=== PATIENT | male | born 1940 | race Caucasian/White ===

== ENCOUNTER → 2019-08-16 10:18 | Outpatient (BNVA) | payer MEDICARE, SELFPAY | PROVIDERS: Family Provider Urology; PCP Family Medicine; Visit Provider Family Medicine | DX: J30.9 Allergic rhinitis, unspecified (principal); E03.9 Hypothyroidism, unspecified; E78.00 Pure hypercholesterolemia, unspecified; R63.4 Abnormal weight loss; Z01.818 Encounter for other preprocedural examination; J30.1 Allergic rhinitis due to pollen; K21.9 Gastro-esophageal reflux disease without esophagitis; N40.0 Benign prostatic hyperplasia without lower urinary tract symptoms | CPT/HCPCS: 80053; 80061; 84439; 84443; 84481; 85025 ==

== ENCOUNTER 2019-09-23 06:00 | Outpatient (RCR) | payer MEDICARE, SELFPAY | END 2019-10-05 23:59 | disposition home or self-care (01) | LOC: MPT 06:00 | PROVIDERS: PCP Family Medicine; Visit Provider Orthopaedic Surgery | DX: Z47.1 Aftercare following joint replacement surgery (principal); Z96.652 Presence of left artificial knee joint | CPT/HCPCS: 97110; 97140; 97161; 97530; G0283 ==

== ENCOUNTER 2019-10-06 06:00 | Outpatient (RCR) | payer MEDICARE, SELFPAY | END 2019-11-05 23:59 | disposition home or self-care (01) | LOC: MPT 06:00 | PROVIDERS: PCP Family Medicine; Visit Provider Orthopaedic Surgery | DX: Z47.1 Aftercare following joint replacement surgery (principal); Z96.652 Presence of left artificial knee joint | CPT/HCPCS: 97110; 97116; 97140; G0283 ==

== ENCOUNTER 2019-11-06 06:00 | Outpatient (RCR) | payer MEDICARE, SELFPAY | END 2019-12-06 23:59 | disposition home or self-care (01) | LOC: MPT 06:00 | PROVIDERS: PCP Family Medicine; Visit Provider Orthopaedic Surgery | DX: Z47.1 Aftercare following joint replacement surgery (principal); Z96.652 Presence of left artificial knee joint | CPT/HCPCS: 97110; 97140 ==

== ENCOUNTER → 2020-01-10 14:32 | Outpatient (BNVA) | payer MEDICARE, SELFPAY | PROVIDERS: PCP Family Medicine; Visit Provider Nurse Practitioner Family | DX: Z20.828 Contact with and (suspected) exposure to other viral communicable diseases (principal); R68.89 Other general symptoms and signs | CPT/HCPCS: 87400; 87635 ==

== ENCOUNTER → 2020-03-23 09:12 | Outpatient (BNVA) | payer MEDICARE, SELFPAY | PROVIDERS: PCP Family Medicine; Visit Provider Urology | DX: R97.20 Elevated prostate specific antigen [PSA] (principal); N40.0 Benign prostatic hyperplasia without lower urinary tract symptoms | CPT/HCPCS: 81003; 84153 ==

== ENCOUNTER → 2021-04-10 13:12 | Outpatient (BNVA) | payer MEDICARE, SELFPAY | PROVIDERS: PCP Family Medicine; Visit Provider Urology | DX: R97.20 Elevated prostate specific antigen [PSA] (principal); N40.0 Benign prostatic hyperplasia without lower urinary tract symptoms | CPT/HCPCS: 81003; 84153 ==

== ENCOUNTER → 2021-04-18 09:00 | Outpatient (BNVA) | payer MEDICARE, SELFPAY | PROVIDERS: PCP Family Medicine; Visit Provider Nurse Practitioner Family | DX: Z20.822 Contact with and (suspected) exposure to COVID-19 (principal); N40.1 Benign prostatic hyperplasia with lower urinary tract symptoms | CPT/HCPCS: 87635 ==

== ENCOUNTER 2021-04-25 15:44 | Observation (INO) | payer MEDICARE, SELFPAY ==
[2021-04-24 10:07] VITALS: BMI 18.6
[2021-04-25] VITALS (20 sets, daily range): BP systolic 111–146; BP diastolic 44–96; PULSE 70–102; RESP 10–22; TEMP 36.2–37; O2SAT 94–917; BMI 18.6
--- NOTE | 2021-04-25 06:12 | W.PM.OPSUD ---
Surgery/Procedure H&P Update DATE OF PROCEDURE: April 25, 2021 DATE H&P PERFORMED: 04/10/21 H&P UPDATE INFORMATION: I have reviewed H&P completed within last 30 days, I have examined patient prior to procedure, No changes to prior documentation and H&P is in [facility] EMR on date indicated PLANNED PROCEDURE: Operation Date: 04/25/21 09:05 Proposed Procedures p Transurethral Resection Of Prostate 30824 N40.0(Not Applicable) - Jack Roberts MD s Cystoscopy(Not Applicable) - Jack Roberts MD
--- NOTE | 2021-04-25 07:44 | ECG_ITS ---
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 Measurements Intervals [place] Rate: 78 P: 81 UT: 183 QRS: -12 QRSD: 101 T: 71 QT: 394 QTc: 449 Interpretive Statements SINUS RHYTHM WITH OCCASIONAL VENTRICULAR PREMATURE COMPLEXES No previous ECG available for comparison Electronically Signed On 04-26-2021 19:25:16 [employer] by Danielle Irizarry M.D. [email or web address]
[2021-04-25] MEDS: sodium chloride 0.9% 1,000 ML 30 ML IV (08:33)
[2021-04-25 08:43] LABS: Basophils % 0.4 %; Eosinophils # 0.2 10^3/uL (0.0-0.8); Eosinophils % 3.1 %; Hematocrit 46.9 % (42.0-52.0); Hemoglobin 15.7 g/dL (11.7-16.6); Lymphocytes # 1.5 10^3/uL (0.8-4.8); Lymphocytes % 28.5 %; Mean Corpuscular HGB Conc 33.5 g/dL (30.0-36.0); Mean Corpuscular Hemoglobin 30.9 pg (28.0-34.0); Mean Corpuscular Volume 92.3 fl (80-94); Mean Platelet Volume 10.1 fL (7.4-10.4); Monocytes # 0.6 10^3/uL (0.2-0.9); Monocytes % 10.8 %; Neutrophils # 2.97 10^3/uL (1.8-7.7); Nucleated Red Blood Cells % 0 %; Platelet Count 158 10^3/cmm (130-400); Red Blood Count 5.08 10^6/uL (4.1-5.3); Red Cell Distribution Width 11.9 % (12.1-15.1); White Blood Count 5.2 10^3/uL (4.0-10.0)
--- NOTE | 2021-04-25 09:06 | P.ANESASSM_ITS ---
Pre-Anesthetic Assessment Pre-Anesthetic Assessment: Height/Weight: Height 1.88 m Weight 65.771 kg Temp Pulse Resp BP Pulse Ox 97.4 F L 88 17 129/66 96 04/25/21 07:49 04/25/21 07:49 04/25/21 07:49 04/25/21 07:49 04/25/21 07:49 Preop Diagnosis: Refractory BPH/obstruction Proposed Procedure: Operation Date: 04/25/21 10:05 Proposed Procedures p Transurethral Resection Of Prostate 42474 N40.0(Not Applicable) - Jack Roberts MD s Cystoscopy(Not Applicable) - Jack Roberts MD Was Beta Yamileth taken within 24 hours: N/A Was Clonidine taken within 24 hours: N/A Last intake: Intake Last Liquid Date 04/24/21 Last Liquid Time 22:00 Last Solid Date 04/24/21 Last Solid Time 22:00 Social: Social History: No alcohol and No tobacco Exam: Pre-Anes Outpt Exam: alert, oriented x 3, clear to auscultation bilaterally and regular rate & rhythm Airway: Submandibular: WNL Cervical ROM: WNL MP: 2 Dentition: Full GI: GI: GERD Anesthetic Plan: ASA status: 2 Anesthesia: General Risk of > 500 ml blood loss (7ml/kg in children): No Medications/Allergies 2 Current Medications: Current Medications Generic Name Dose Route Start Last Admin Trade Name Freq PRN Reason Stop Dose Admin Sodium Chloride 1,000 mls @ 30 ml s/hr 04/25/21 07:45 04/25/21 08:33 Sodium Chloride 0.9% IV 04/26/21 07:44 30 mls/hr .Q24H АНДРЕЙ Administration PFSH Anesthesia PFSH: Medical History Allergic rhinitis Benign non-nodular prostatic hyperplasia BPH loc w urin obs/LUTS Elevated PSA GERD (gastroesophageal reflux disease) Hypercholesteremia Hypothyroidism Surgical History H/O shoulder surgery History of knee replacement Family History Brother Cancer Dementia Mother , in her 80's No problems noted. Father , at age 82 Stroke Social History Smoking and tobacco status: never smoked Second hand smoke exposure: No Alcohol intake: never Desire information about alcohol rehabilitation?: No Desire information about substance/drug rehabilitation?: No Marital status: Current occupational status: retired History of recent travel: No Current gender identity: Male Data Anesthesia CBC & Chem 7: 04/25/21 08:28 04/25/21 08:28 Other Labs: Laboratory Results - last 48 hr 04/25/21 08:28 WBC 5.2 RBC 5.08 Hgb 15.7 Hct 46.9 MCV 92.3 MCH 30.9 MCHC 33.5 RDW 11.9 L Plt Count 158 MPV 10.1 Neut % (Auto) 57.0 Lymph % (Auto) 28.5 [place] % (Auto) 10.8 Eos % (Auto) 3.1 Baso % (Auto) 0.4 Neut # (Auto) 2.97 Lymph # (Auto) 1.5 [facility] [facility] # (Auto) 0.6 Eos # (Auto) 0.2 Baso # (Auto) 0.0 Nucleated RBC % (auto) 0 Nucleated RBCs # 0.0 Cardiac Studies: No Data to Display
[2021-04-25 09:11] LABS: Alanine Aminotransferase 12 U/L (0-41); Albumin Level 4.2 g/dL (3.5-5.2); Alkaline Phosphatase 73 IU/L (40-130); Aspartate Amino Transferase 16 U/L (0-40); Blood Urea Nitrogen 17 mg/dL (8-23); Carbon Dioxide 24 mmol/L (22-29); Chloride 107 mmol/L (98-107); Creatinine Clr Calc Pharmacy 61.9141; Globulin 2.3 g/dL (1.3-4.6); Glucose 88 mg/dL (65-115); Osmolality Calculated 293 mOsm/kg (285-295); Sodium 141 mmol/L (136-145); Total Bilirubin 0.5 mg/dL (0.15-1.2); Total Protein 6.5 g/dL (6.6-8.7)
[2021-04-25 09:22] LABS: Anion Gap 14.2 (5-19); Potassium 4.2 mmol/L (3.5-5.1)
--- NOTE | 2021-04-25 11:36 | P.HPUD_ITS ---
Surgery/Procedure H&P Update DATE OF PROCEDURE: April 25, 2021 DATE H&P PERFORMED: 04/25/20 H&P UPDATE INFORMATION: I have reviewed H&P completed within last 30 days, I have examined patient prior to procedure, No changes to prior documentation and H&P is in [facility] [place] EMR on date indicated CHANGES TO PREVIOUS DOCUMENTATION: Procedure reviewed again with perioperative expectations and limitations reviewed PREOP DIAGNOSIS: Refractory BPH/obstruction PLANNED PROCEDURE: Operation Date: 04/25/21 09:05 Proposed Procedures p Transurethral Resection Of Prostate 97973 N40.0(Not Applicable) - Jack Roberts MD s Cystoscopy(Not Applicable) - Jack Roberts MD
--- NOTE | 2021-04-25 11:45 | P.OP_ITS ---
Operative Report Date of procedure: April 25, 2021 Pre-op Diagnosis: Refractory BPH/obstruction Post-op diagnosis: same Post-op Diagnosis: Refractory BPH/obstruction Procedure Done: 1. Cystoscopy, transurethral resection/vaporization of the prostate Specimens removed/disposition: Prostate chips Pathology: Sampling of prostate tissue Surgeon: Alejandra Anesthesia: General Estimated blood loss: <100 cc Urine output: Not measured Complications: None Findings: Trilobar enlargement of the prostate. Wide open at the completion of the procedure with good hemostasis. All prostate chips evacuated from the bladder confirmed Condition: stable Disposition: PACU Brief History: Mr. Young is a delightful 80-year-old white male with longstanding BPH/obstruction and managed with medical therapy for years. More recently his symptoms have been increasing and he decided to switch from medical therapy to surgical intervention. We have talked about surgery options for many years. He had been scheduled a couple times but due to illness and other variables he had to postpone. . Procedure: After routine preoperative evaluation examination and obtaining of informed consent he was taken to the operating suite on 04/25/2020 where general anesthesia was administered without difficulty after appropriate timeout was performed, SCDs confirmed to be functioning, preoperative antibiotics administered, beta-lottie protocol confirmed. Prepped and draped in usual sterile fashion in dorsolithotomy position paying careful attention to avoiding pressure points. 21 [place] cystoscope with 30 degree lens was introduced into the urethra meatus and advanced into the bladder to videoscopy. The bladder was systematically examined with both 30 and 70 degree lenses. No other gross pathology was identified other than trilobar enlargement of the prostate. The bladder was moderately trabeculated. Urethra was then calibrated with [place] sounds and easily accommodated 30 [place]. 2% lidocaine jelly was instilled into the urethra then a 25 [place] continuous- flow resectoscope sheath with visual obturator in place was advanced into the bladder without difficulty. The gyrus bipolar system was utilized with supersect for resection and button probe for vaporization as well as final sculpting of the prostatic fossa with hemostasis obtained. The prostatic mucosa was very friable and for that reason the initial treatment was instituted with the button probe for hemostatic vaporization. This was initiated at the bladder neck with intravesically protruding prostatic tissue with resection circumferentially down to the circular fibers of the bladder neck. There was very minimal median lobe tissue. The left lateral lobe from the bladder neck at the roughly 12 o'clock position down to the floor of the prostate was vaporized out to but not distal to the verumontanum. The right lateral lobe was then vaporized in the same longitudinal extent and depth. The floor the tissue was harvested in the same fashion. A 6:00 incision was made with the button probe vaporization as well as at 3:00 and 9:00 to further spring the bladder neck open. The supersect loop was utilized to resect some of the deeper lateral lobe tissue down to the surgical capsule. A small amount of tissue remained at the apical aspect of the prostate at the level of the verumontanum this was carefully trimmed away avoiding resecting distal to the verumontanum. The orifices which were easily identified at the beginning of the procedure were not involved in the resection and were not near the bladder neck. Hemostasis was obtained after sculpting of the fossa with the button probe. Chips were evacuated from the bladder and the procedure was completed. At least 90% of the tissue was vaporized as opposed to resected. A small amount in total was sent for pathologic evaluation via resection by the supersect loop. Bladder was drained with a 22 [place] three-way Stanley catheter with 30 cc placed in the balloon. Light CBI was initiated with normal saline. He tolerated the procedure well without complications and was awakened in the operating room and returned to the recovery room in stable condition. .
--- NOTE | 2021-04-25 15:00 | ANE.PACU2 ---
Inpatient post-anesthesia follow up: Airway intact: Yes Vital signs: Temperature 97.1 F Pulse Rate 73 Respiratory Rate 10 Blood Pressure 124/56 Pulse Oximetry 97 Oxygen Delivery Me thod Room Air Oxygen Flow Rate Fraction of Inspir ed Oxygen Hydration adequate: Yes Nausea and vomiting: No Pain level: 2 Mental status: Baseline
[2021-04-25] MEDS: dextrose 5%-ns + KCl 20 20 MEQ/1,000 ML BAG 30 MEQ IV (18:30)
[2021-04-25] MEDS: tamsulosin 0.4 mg Capsule PO (18:30)
[2021-04-25] MEDS: loratadine 10 mg Tablet PO (20:38)
[2021-04-26] VITALS: BP 96/52; PULSE 73; RESP 16; TEMP 36.7; O2SAT 96
[2021-04-26 04:00] VITALS: BP 92/65; PULSE 73; RESP 16; TEMP 36.7; O2SAT 96
[2021-04-26 06:54] LABS: Glucose Point of Care 105 mg/dL (70-110)
[2021-04-26 08:00] VITALS: BP 102/61; PULSE 76; RESP 18; TEMP 36.9; O2SAT 98
[2021-04-26] MEDS: levothyroxine 50 mcg Tablet PO (08:59)
[2021-04-26] MEDS: pantoprazole DR 40 mg Tablet PO (08:59)
[2021-04-26] MEDS: tamsulosin 0.4 mg Capsule PO ×2 (09:00→17:49)
[2021-04-26 12:00] VITALS: BP 117/58; PULSE 75; RESP 18; TEMP 36.5; O2SAT 97
[2021-04-26 16:00] VITALS: BP 157/53; PULSE 64; RESP 18; TEMP 37.3; O2SAT 96
--- NOTE | 2021-04-26 17:16 | PC.NURSE ---
6 bottle void with a bladder scan after: Void 1: 10 mL out, 57 mL in after scan. Void 2: 50 mL out, 165 mL in after scan. Void 3: 30 mL out, 173 mL in after scan. Void 4: 60 mL out, 176 mL in. Void 5: 100 mL out, 105 mL in after scan. Void 6: 150 mL out, 85 mL in. Patient states that he feels like he is emptying his bladder well and it is easier to urinate.
--- NOTE | 2021-04-26 18:04 | PC.NURSE ---
Bladder scanned patient after voiding. Patient had 150 mL out. Bladder scan showed 93 mL in the bladder
--- NOTE | 2021-04-26 18:12 | P.DS_ITS ---
Discharge Providers Date of Admission: 04/25/21 15:44 Date of Discharge: April 26, 2021 Attending Provider at Admission: Jack Roberts MD Attending Provider at Discharge: Jack Roberts MD Primary Care Provider: Mallory Davis MD Reason for Visit Reason for Visit: Prostatic Hyperplasia Hospital Course Hospital Course He was admitted through outpatient surgery on the day of surgery which went well. He was found to have a large prostate primarily lateral lobe hypertrophy. Most of the prostate treatment consisted of vaporization but there was some resection for sampling purposes. At the completion of the procedure he was wide open and hemostasis was excellent. Postoperatively he did well with a Stanley catheter removed on postoperative day # 1 after CBI was weaned off. His urine cleared appropriately and frequent post void bladder scan showed good emptying. He was discharged on the evening of postoperative day #1 in stable condition. Physical Exam Const: COMMON NORMALS: no acute distress, alert and well nourished GENERAL APPEARANCE: well kempt and well developed ORIENTATION/CONSCIOUSNESS: not confused HENMT: COMMON NORMALS: normocephalic and atraumatic HEAD & SCALP: normocephalic and atraumatic Neck/C-Spine: COMMON NORMALS: full ROM Resp: COMMON NORMALS: normal respiratory effort EFFORT & INSPECTION: No l abored and No Actively coughing Extremity: COMMON NORMALS: no clubbing, cyanosis or edema Neuro: COMMON NORMALS: no focal motor deficits SENSORIUM/ORIENTATION: Yes alert Psych: COMMON NORMALS: mental status grossly normal APPEARANCE: Yes grossly normal and Yes well kempt ATTITUDE: Yes calm and Yes engaged Urinary Catheter Management^: 3-way Urethral CBI: Cath Placed During This Visit: yes Reason for Continuing Indwelling Catheter: Perioperative Use in Selected Surgeries Urinary Catheter Date of Insertion: 04/25/21 Urinary Catheter Time of Insertion: 14:00 Discharge Data Data Completed and Pending: Pending at discharge Category Date Time Status Pathology: Surgic al [PTH] Routine Pth 04/25/21 14:13 Received Labs from last 24 hours 04/26/21 06:46 POC Glucose 105 Vitals: Last Vital Signs Temp 99.2 F 04/26/21 16:00 Pulse 64 04/26/21 16:00 Resp 18 04/26/21 16:00 BP 157/53 04/26/21 16:00 Pulse Ox 96 04/26/21 16:00 Discharge Plan Discharge Patient Disposition: Home Condition: Stable Prescriptions: New levofloxacin 500 mg tablet 500 mg PO DAILY 7 Days RF: 0 Continued omeprazole 20 mg capsule,delayed release(DR/EC) 20 mg PO DAILY RF: 0 loratadine 10 mg tablet 10 mg PO .at bedtime 30 Days Qty: 30 RF: 5 fluticasone propionate 50 mcg/actuation spray,suspension 1 spray INTRANASAL DAILY 30 Days Qty: 18.2 RF: 5 levothyroxine 50 mcg tablet 50 mcg PO DAILY 90 Days Qty: 90 RF: 3 tamsulosin 0.4 mg capsule 0.4 mg PO BID Qty: 180 RF: 3 Discharge Orders: Discharge Order (Routine); Ordered 04/26/21 Ordered By: Jack Roberts Referrals: Jack Roberts MD [Physician] - 6 Weeks (Flow rate PVR AUA symptom score) Discharge Diet: Advance as tolerated and Usual diet Discharge Activity: Limit activity as instructed Patient Instructions: Opioid Safety Activity Restrictions/Additional Instructions: 1. Continue the tamsulosin for at least another 2 weeks. If doing well at that point can stop. 2. Avoid lifting >10 pounds for at least 3 to 4 weeks. Everything leisure. 3. Is normal to see blood in your urine off and on. Sometime around 1 to 2 weeks you may pass a scab with more bleeding but drink a lot of fluids to help reduce the risk of forming clots and reduce your activity and it should stop on its own without difficulty. 4. Please call my office if you have any concerns about your condition. The hospital check writing machine operator can reach me after hours if there is a problem. 5. Avoid constipation. Use laxatives and stool softeners as needed so that you do not have to strain to have a bowel movement. 6. A prescription for some antibiotics has been called to prevent infection. 7. Presuming everything goes well I will plan on seeing you back in my office in about 6 weeks for a quick postoperative check. Discharge Attestations Time Spent in Discharge Care*: less than 30 min Quality Metrics Clinical Quality Measures During this hospital stay, did patient experience: None Coding Level of Care Code Acute g DC note
[2021-04-26 18:36] VITALS: BP 157/53; PULSE 64; RESP 18; TEMP 37.3; O2SAT 96
== END 2021-04-26 18:37 | disposition home or self-care (01) ==
LOC: MEDSURG 15:47
PROVIDERS: Admitting Provider Urology; PCP Family Medicine; Visit Provider Urology
PROC: 0VT08ZZ Resection of Prostate, Via Natural or Artificial Opening Endoscopic (ICD-10-PCS; CPT 52601; principal; 2021-04-25 10:05)
PROC: 0TJB8ZZ Inspection of Bladder, Via Natural or Artificial Opening Endoscopic (ICD-10-PCS; CPT 52000; 2021-04-25 10:05)
DX: N40.1 Benign prostatic hyperplasia with lower urinary tract symptoms (principal); N13.8 Other obstructive and reflux uropathy; K21.9 Gastro-esophageal reflux disease without esophagitis; E78.00 Pure hypercholesterolemia, unspecified; E03.9 Hypothyroidism, unspecified
CPT/HCPCS: 52601; 36416; 36592; 80053; 82962; 85025; 88305; 93005; G0378; J1100; J2405; J2704; J3010; J3490; J7030

== ENCOUNTER → 2021-06-08 12:53 | Outpatient (BNVA) | payer MEDICARE, SELFPAY | PROVIDERS: PCP Family Medicine; Visit Provider Urology | DX: N40.1 Benign prostatic hyperplasia with lower urinary tract symptoms (principal); J30.9 Allergic rhinitis, unspecified; R82.81 Pyuria; Z98.890 Other specified postprocedural states | CPT/HCPCS: 81003; 87086 ==

== ENCOUNTER → 2021-08-09 14:58 | Outpatient (BNVA) | payer MEDICARE, SELFPAY | PROVIDERS: PCP Family Medicine; Visit Provider Urology | DX: N40.1 Benign prostatic hyperplasia with lower urinary tract symptoms (principal); R39.9 Unspecified symptoms and signs involving the genitourinary system | CPT/HCPCS: 51741; 51798; 81003; 99024 ==

== ENCOUNTER → 2021-10-05 10:47 | Outpatient (BNVA) | payer MEDICARE, SELFPAY | PROVIDERS: PCP Family Medicine; Visit Provider Urology | DX: N40.1 Benign prostatic hyperplasia with lower urinary tract symptoms (principal); R39.9 Unspecified symptoms and signs involving the genitourinary system | CPT/HCPCS: 51741; 51798; 81003; 99213 ==

== ENCOUNTER → 2022-01-08 08:52 | Outpatient (BNVA) | payer MEDICARE, SELFPAY | PROVIDERS: PCP Family Medicine; Visit Provider Family Medicine | DX: E03.9 Hypothyroidism, unspecified (principal); J30.1 Allergic rhinitis due to pollen; K21.9 Gastro-esophageal reflux disease without esophagitis; E78.00 Pure hypercholesterolemia, unspecified; Z13.1 Encounter for screening for diabetes mellitus | CPT/HCPCS: 80053; 80061; 84443 ==

== ENCOUNTER → 2022-04-09 10:05 | Outpatient (BNVA) | payer MEDICARE, SELFPAY | PROVIDERS: PCP Family Medicine; Visit Provider Urology | DX: N40.1 Benign prostatic hyperplasia with lower urinary tract symptoms (principal) | CPT/HCPCS: 51741; 51798; 81003; 99212 ==

== ENCOUNTER → 2022-09-05 08:27 | Outpatient (BNVA) | payer MEDICARE, SELFPAY | PROVIDERS: PCP Family Medicine; Visit Provider Urology | DX: N40.1 Benign prostatic hyperplasia with lower urinary tract symptoms (principal); N43.40 Spermatocele of epididymis, unspecified; N43.3 Hydrocele, unspecified | CPT/HCPCS: 51741; 51798; 81003; 99213 ==

== ENCOUNTER → 2022-09-11 14:32 | Outpatient (BNVA) | payer MEDICARE, SELFPAY | PROVIDERS: PCP Family Medicine; Visit Provider Family Medicine | DX: R00.1 Bradycardia, unspecified (principal); E03.9 Hypothyroidism, unspecified; I10 Essential (primary) hypertension | CPT/HCPCS: 80053; 83735; 84439; 84443; 84481; 85025 ==

== ENCOUNTER → 2022-09-19 10:06 | Outpatient (BNVA) | payer MEDICARE, SELFPAY | PROVIDERS: PCP Family Medicine; Visit Provider Internal Medicine Cardiovascular Disease | DX: E78.00 Pure hypercholesterolemia, unspecified (principal); R53.83 Other fatigue | CPT/HCPCS: 99203 ==

== ENCOUNTER → 2023-01-13 09:29 | Outpatient (BNVA) | payer MEDICARE, SELFPAY | PROVIDERS: PCP Family Medicine; Visit Provider Family Medicine | DX: M25.512 Pain in left shoulder (principal); M21.822 Other specified acquired deformities of left upper arm | CPT/HCPCS: 73000; 73030 ==

== ENCOUNTER → 2023-02-05 13:37 | Outpatient (BNVA) | payer MEDICARE, SELFPAY | PROVIDERS: PCP Family Medicine; Referring Provider Family Medicine; Visit Provider Nurse Practitioner | DX: M25.512 Pain in left shoulder; G89.29 Other chronic pain; R29.898 Other symptoms and signs involving the musculoskeletal system | CPT/HCPCS: 73030; 99204 ==

== ENCOUNTER 2023-04-08 06:00 | Outpatient (RCR) | payer MEDICARE, SELFPAY | END 2023-05-07 23:59 | disposition home or self-care (01) | LOC: MPT 06:00 | PROVIDERS: Visit Provider Nurse Practitioner | DX: M25.512 Pain in left shoulder (principal) | CPT/HCPCS: 97161 ==

== ENCOUNTER → 2023-05-26 09:14 | Outpatient (BNVA) | payer MEDICARE, SELFPAY | PROVIDERS: PCP Family Medicine; Visit Provider Nurse Practitioner Family | DX: R31.9 Hematuria, unspecified (principal); N40.1 Benign prostatic hyperplasia with lower urinary tract symptoms; R97.20 Elevated prostate specific antigen [PSA]; R53.83 Other fatigue | CPT/HCPCS: 80053; 81000; 84153; 84443; 85025; 87086 ==

== ENCOUNTER → 2023-12-22 09:42 | Outpatient (BNVA) | payer MEDICARE, SELFPAY | PROVIDERS: PCP Family Medicine; Visit Provider Family Medicine | DX: E03.9 Hypothyroidism, unspecified (principal); E78.00 Pure hypercholesterolemia, unspecified; R97.20 Elevated prostate specific antigen [PSA]; N40.0 Benign prostatic hyperplasia without lower urinary tract symptoms | CPT/HCPCS: 80053; 80061; 84153; 84443 ==

== ENCOUNTER → 2024-12-21 09:18 | Outpatient (BNVA) | payer MEDICARE, SELFPAY | PROVIDERS: PCP Family Medicine; Visit Provider Family Medicine | DX: Z12.5 Encounter for screening for malignant neoplasm of prostate (principal); R97.20 Elevated prostate specific antigen [PSA]; E78.00 Pure hypercholesterolemia, unspecified; E03.9 Hypothyroidism, unspecified | CPT/HCPCS: 80053; 80061; 84153; 84443 ==

== ENCOUNTER → 2025-02-23 08:26 | Outpatient (BNVA) | payer MEDICARE, SELFPAY | PROVIDERS: PCP Family Medicine; Visit Provider Family Medicine | DX: E03.9 Hypothyroidism, unspecified (principal) | CPT/HCPCS: 84439; 84443; 84481 ==